=== PATIENT | male | born 1975 | race Caucasian/White ===

== ENCOUNTER 2022-01-12 05:48 | Day surgery (SDC) | payer BC ==
[2022-01-10 14:14] VITALS: BMI 33.0
[2022-01-12] MEDS ORDERED: Fentanyl 100 MCG/2 ML VIAL ONE (07:16)
[2022-01-12] MEDS ORDERED: PROPOFOL 20 ML ONE ×2 (07:16→08:00)
== END 2022-01-12 08:32 | disposition home or self-care (01) ==
LOC: CSHSDC 05:48
PROVIDERS: ATTEND Internal Medicine Gastroenterology
PROC: 0DB58ZX Excision of Esophagus, Via Natural or Artificial Opening Endoscopic, Diagnostic (ICD-10-PCS; principal; 2022-01-12)
PROC: 0D757ZZ Dilation of Esophagus, Via Natural or Artificial Opening (ICD-10-PCS; principal; 2022-01-12)
PROC: 0DB78ZX Excision of Stomach, Pylorus, Via Natural or Artificial Opening Endoscopic, Diagnostic (ICD-10-PCS; principal; 2022-01-12)
DX: K21.00 Gastro-esophageal reflux disease with esophagitis, without bleeding (principal); R13.10 Dysphagia, unspecified; K29.50 Unspecified chronic gastritis without bleeding; E78.5 Hyperlipidemia, unspecified; J45.909 Unspecified asthma, uncomplicated; F41.9 Anxiety disorder, unspecified; F32.A Depression, unspecified; L30.9 Dermatitis, unspecified; E66.9 Obesity, unspecified; Z87.891 Personal history of nicotine dependence
CPT/HCPCS: 88305; J2704; J3010

== ENCOUNTER 2022-04-06 07:26 | Day surgery (SDC) | payer BC ==
[2022-04-04 14:49] VITALS: BMI 33.7
[2022-04-06] MEDS ORDERED: Midazolam HCl 2 mg/2 ml Vial ONE (09:34)
[2022-04-06] MEDS ORDERED: Fentanyl 100 MCG/2 ML VIAL ONE (09:34)
[2022-04-06] MEDS ORDERED: PROPOFOL 20 ML ONE ×2 (09:34)
== END 2022-04-06 10:31 | disposition home or self-care (01) ==
LOC: CSHSDC 07:26
PROVIDERS: ATTEND Internal Medicine Gastroenterology
PROC: 0DJD8ZZ Inspection of Lower Intestinal Tract, Via Natural or Artificial Opening Endoscopic (ICD-10-PCS; principal; 2022-04-06)
DX: Z12.11 Encounter for screening for malignant neoplasm of colon (principal); Z87.891 Personal history of nicotine dependence; K57.30 Diverticulosis of large intestine without perforation or abscess without bleeding; K64.9 Unspecified hemorrhoids; K21.9 Gastro-esophageal reflux disease without esophagitis; J45.909 Unspecified asthma, uncomplicated; E78.5 Hyperlipidemia, unspecified; E66.9 Obesity, unspecified; Z68.37 Body mass index [BMI] 37.0-37.9, adult; Z98.890 Other specified postprocedural states
CPT/HCPCS: J2250; J2704; J3010